=== PATIENT | male | born 1935 | race Caucasian/White ===

== ENCOUNTER 2017-06-26 16:58 | Observation (INO) ==
[2017-06-26 17:36] LABS: INR 1.1; PT Patient Result 11.4 SECS; Partial Thromboplastin Time 24.1 SECS (0-40)
[2017-06-26] MEDS ORDERED: LIDOCAINE 2%/EPI 20 ML VIAL ONE (17:52)
[2017-06-26] MEDS ORDERED: TISSUE ADHESIVE 1 EACH APPLICATOR TOP ONE (17:55)
[2017-06-26 18:22] LABS: Basophils % 0.1 % (0.0-0.8); Eosinophils % 0.1 % (0.00-10.9); Hematocrit 24.1 VOL% (42.0-52.0); Hemoglobin 7.9 GM/DL (14.0-18.0); Immature Granulocytes % 0.1 %; Immature Granulocytes Absolute 0.05 #; Lymphocytes # 30.3 10*3/uL (1.4-4.0); Lymphocytes % 85.5 % (21.2-54.2); Mean Corpuscular HGB Conc 32.8 GM/DL (32-36); Mean Corpuscular Hemoglobin 36 PG (27-34); Mean Corpuscular Volume 111.1 FL (87-102); Mean Platelet Volume 13.2 FL (9.6-12.0); Monocytes # 4.1 10*3/uL (0.11-0.8); Monocytes % 11.5 % (1.7-12.7); NRBC # 0.02 10*3/uL; Neutrophils % 2.7 % (38.7-73.9); Red Blood Count 2.17 MC/CUMM (3.8-5.5); Red Cell Distribution Width 17.3 % (9.3-17.3); White Blood Count 35.4 T/CUMM (4-12)
[2017-06-26 18:24] LABS: Platelet Count 20 T/CUMM (130-400)
[2017-06-26 18:29] LABS: Lymphocytes 89 % (20-55); Platelet Estimate Decreased; Segmented Neutrophils 3 % (50-85); Total Cells Counted 100
[2017-06-26 18:30] LABS: Anisocytosis 2+; Macrocytosis 1+; Microcytosis 1+; Smudge Cells Many
[2017-06-26] MEDS ORDERED: traMADol 50 MG TABLET PO ONE (19:10)
[2017-06-26] MEDS ORDERED: ACETAMINOPHEN 325 MG TABLET PO PRN ×2 (19:10→20:06)
[2017-06-26] MEDS ORDERED: ONDANSETRON 4 MG/2 ML VIAL IV PRN ×2 (19:10→20:06)
[2017-06-26] MEDS ORDERED: LEVOFLOXACIN 500 MG TABLET PO STA (19:10)
[2017-06-26] MEDS ORDERED: MYLANTA/LIDO VISC 2:1 300 ML BOTTLE SWISH/SWAL PRN (20:06)
[2017-06-26] MEDS ORDERED: MYLANTA/LIDO VISC 2:1 300 ML BOTTLE SWISH/SPIT PRN (20:06)
[2017-06-26] MEDS ORDERED: LOPERAMIDE 2 MG CAPSULE PO PRN ×2 (20:06)
[2017-06-26] MEDS ORDERED: diphenhydrAMINE CAP 25 MG CAPSULE PO PRN (20:06)
[2017-06-26] MEDS ORDERED: ALUMINUM/MAGNES/SIMETH MAX STR 30 ML UDCUP PO PRN (20:06)
[2017-06-26] MEDS ORDERED: TEMAZEPAM 7.5 MG CAPSULE PO PRN (20:06)
[2017-06-26] MEDS ORDERED: MAGNESIUM HYDROXIDE SUSP 30 ML UDCUP PO PRN (20:06)
[2017-06-26] MEDS ORDERED: BENZTROPINE 2 MG/2 ML AMP IV PRN (20:06)
[2017-06-26] MEDS ORDERED: chlorproMAZINE 25 MG TABLET PO PRN (20:06)
[2017-06-26] MEDS ORDERED: PROMETHAZINE INJ 25 MG in SODIUM CHLORIDE 0.9% 50 ML IV PRN (20:06)
[2017-06-26] MEDS ORDERED: guaiFENesin 200 MG/10 ML UDCUP PO PRN (20:06)
[2017-06-26] MEDS ORDERED: LACTULOSE 20 GM/30 ML UDCUP PO PRN (20:06)
[2017-06-26] MEDS ORDERED: chlorproMAZINE INJ 25 MG in SODIUM CHLORIDE 0.9% 100 ML IV PRN (20:06)
[2017-06-26] MEDS ORDERED: ALPRAZolam 0.25 MG TABLET PO PRN (20:06)
[2017-06-26] MEDS ORDERED: chlorproMAZINE INJ 50 MG in SODIUM CHLORIDE 0.9% 100 ML IV PRN (20:06)
[2017-06-26] MEDS ORDERED: traMADol 50 MG TABLET PO PRN (20:06)
[2017-06-26 20:34] LABS: Albumin 3.1 G/DL (3.4-5.0); Bilirubin,Total 0.7 MG/DL (0.2-1.0); Calcium 7.6 MG/DL (8.5-10.1); Osmolality,Calculated 277.1 MOS/KG (273-304); Potassium 3.8 MMOL/L (3.5-5.1); Total Protein 5.4 G/DL (6.4-8.3); Uric Acid 8.3 MG/DL (3.5-7.2)
[2017-06-27 07:41] LABS: Basophils # 0.1 10*3/uL (0.0-0.2); Basophils % 0.1 % (0.0-0.8); Eosinophils # 0.1 10*3/uL (0.0-0.87); Eosinophils % 0.2 % (0.00-10.9); Hematocrit 22.9 VOL% (42.0-52.0); Hemoglobin 7.5 GM/DL (14.0-18.0); Immature Granulocytes % 0.1 %; Immature Granulocytes Absolute 0.05 #; Lymphocytes # 40.8 10*3/uL (1.4-4.0); Lymphocytes % 80.4 % (21.2-54.2); Mean Corpuscular HGB Conc 32.8 GM/DL (32-36); Mean Corpuscular Hemoglobin 36 PG (27-34); Mean Corpuscular Volume 110.1 FL (87-102); Mean Platelet Volume 10.8 FL (9.6-12.0); Monocytes # 8.8 10*3/uL (0.11-0.8); Monocytes % 17.4 % (1.7-12.7); NRBC # 0.02 10*3/uL; Neutrophils # 0.9 10*3/uL (1.4-7.4); Neutrophils % 1.8 % (38.7-73.9); Red Blood Count 2.08 MC/CUMM (3.8-5.5); Red Cell Distribution Width 17.4 % (9.3-17.3)
[2017-06-27 07:47] LABS: White Blood Count 50.7 T/CUMM (4-12)
[2017-06-27 07:48] LABS: Platelet Count 23 T/CUMM (130-400)
[2017-06-27] MEDS ORDERED: SODIUM CHLORIDE 0.9% 1,000 ML IV PRN (08:09)
[2017-06-27] MEDS ORDERED: diphenhydrAMINE CAP 25 MG CAPSULE PO ONE (08:10)
[2017-06-27] MEDS ORDERED: ACETAMINOPHEN 500 MG TABLET PO ONE (08:10)
[2017-06-27 08:13] LABS: Eosinophils 1 % (0-10); Lymphocytes 91 % (20-55); Segmented Neutrophils 3 % (50-85); Total Cells Counted 100
[2017-06-27 08:14] LABS: Atypical Lymphocytes Few; Macrocytosis 1+; Smudge Cells Moderate
[2017-06-27 08:15] LABS: Ovalocytes Slight; Platelet Estimate Decreased; Tear Drop Cells Few
[2017-06-27] MEDS ORDERED: traMADol 50 MG TABLET PO PRN (08:19)
[2017-06-27 08:26] LABS: Apearance,Urine CLEAR (Clear); Bilirubin,Urine Negative (Negative); Blood, Urine Negative (Negative); Glucose,Urine (UA) Negative (Negative); Ketones,Urine Negative (Negative); Mucus,Urine Occasional /LPF (Occasional); Nitrite,Urine Negative (Negative); Protein,Urine Negative; RBC,Urine 2 /HPF (0-4); Squamous Epithelial Cell,Urine Occasional /HPF (0-10); Urine Color Yellow (Yellow); Urine Specific Gravity 1.016 (1.001-1.035); WBC,Urine <1 /HPF (0-6)
[2017-06-27] MEDS ORDERED: ACETAMINOPHEN 325 MG TABLET PO SCH (08:30)
[2017-06-27] MEDS ORDERED: ONDANSETRON 4 MG TABLET PO PRN (08:55)
[2017-06-27] MEDS ORDERED: MAG CARB PO SCH (09:00)
[2017-06-27] MEDS ORDERED: CALCIUM CARBONATE PO SCH (09:00)
[2017-06-27] MEDS ORDERED: SPIRONOLACTONE/HCTZ 25-25 MG TABLET PO SCH (09:00)
[2017-06-27] MEDS: MULTIVITAMIN (BEROCCA) TABLET PO SCH (09:41)
[2017-06-27] MEDS: MONTELUKAST 10 MG TABLET PO SCH (09:41)
[2017-06-27] MEDS: MULTIVITAMIN (CENTRUM) TABLET PO SCH (09:41)
[2017-06-27] MEDS: SIMVASTATIN 10 MG TABLET PO SCH (09:42)
[2017-06-27] MEDS: PANTOPRAZOLE 40 MG TABLET PO SCH (09:42)
[2017-06-27] MEDS: CALCIUM (CARBONATE) 500 MG TABLET PO SCH (09:42)
[2017-06-27] MEDS ORDERED: ONDANSETRON 4 MG TABLET PO SCH (12:00)
[2017-06-27] MEDS: SPIRONOLACTONE 25 MG TABLET PO SCH (13:53)
[2017-06-27] MEDS: hydroCHLOROthiazide 12.5 MG CAPSULE PO SCH (13:54)
[2017-06-27] MEDS: ACETAMINOPHEN 325 MG TABLET PO PRN (17:33)
[2017-06-28] MEDS: ACETAMINOPHEN 325 MG TABLET PO PRN (02:23)
[2017-06-28 07:07] LABS: Basophils # 0.1 10*3/uL (0.0-0.2); Basophils % 0.1 % (0.0-0.8); Eosinophils # 0.2 10*3/uL (0.0-0.87); Eosinophils % 0.5 % (0.00-10.9); Hematocrit 26.1 VOL% (42.0-52.0); Hemoglobin 8.9 GM/DL (14.0-18.0); Immature Granulocytes % 0.1 %; Immature Granulocytes Absolute 0.03 #; Lymphocytes # 31.3 10*3/uL (1.4-4.0); Lymphocytes % 86.9 % (21.2-54.2); Mean Corpuscular HGB Conc 34.1 GM/DL (32-36); Mean Corpuscular Hemoglobin 35 PG (27-34); Monocytes # 3.8 10*3/uL (0.11-0.8); Monocytes % 10.5 % (1.7-12.7); Neutrophils # 0.7 10*3/uL (1.4-7.4); Neutrophils % 1.9 % (38.7-73.9); Red Blood Count 2.56 MC/CUMM (3.8-5.5); Red Cell Distribution Width 19.8 % (9.3-17.3)
[2017-06-28 07:09] LABS: Platelet Count 34 T/CUMM (130-400)
[2017-06-28 07:39] LABS: Bilirubin,Total 0.9 MG/DL (0.2-1.0); Calcium 8.2 MG/DL (8.5-10.1); Osmolality,Calculated 274.8 MOS/KG (273-304); Potassium 3.3 MMOL/L (3.5-5.1)
[2017-06-28 08:04] LABS: Atypical Lymphocytes Few; Eosinophils 1 % (0-10); Lymphocytes 92 % (20-55); Segmented Neutrophils 6 % (50-85); Total Cells Counted 100
[2017-06-28 08:05] LABS: Hypochromasia 1+; Macrocytosis 1+; Ovalocytes Slight; Platelet Estimate Decreased; Smudge Cells Moderate; Tear Drop Cells Few
[2017-06-28] MEDS: SPIRONOLACTONE 25 MG TABLET PO SCH (09:18)
[2017-06-28] MEDS: SIMVASTATIN 10 MG TABLET PO SCH (09:18)
[2017-06-28] MEDS: MULTIVITAMIN (BEROCCA) TABLET PO SCH (09:18)
[2017-06-28] MEDS: PANTOPRAZOLE 40 MG TABLET PO SCH (09:18)
[2017-06-28] MEDS: MULTIVITAMIN (CENTRUM) TABLET PO SCH (09:18)
[2017-06-28] MEDS: MONTELUKAST 10 MG TABLET PO SCH (09:18)
[2017-06-28] MEDS: CALCIUM (CARBONATE) 500 MG TABLET PO SCH (09:18)
[2017-06-28] MEDS: hydroCHLOROthiazide 12.5 MG CAPSULE PO SCH (09:26)
[2017-06-28 10:45] VITALS: BP 113/59
== END 2017-06-28 10:45 | disposition home or self-care (01) ==
LOC: N.EDINP 16:58 → N.ED 16:58 → N.4E 18:57
PROVIDERS: ADMIT Surgery; ATTEND Specialist

== ENCOUNTER 2017-08-09 18:48 | Inpatient (IN) ==
[2017-08-09] MEDS ORDERED: VANCOMYCIN INJ 1,000 MG in SODIUM CHLORIDE 0.9% 250 ML IV STA (19:28)
[2017-08-09] MEDS ORDERED: SODIUM CHLORIDE 0.9% 1,000 ML IV STA ×2 (19:28→21:40)
[2017-08-09] MEDS ORDERED: CEFEPIME 2,000 MG in SODIUM CHLORIDE 0.9% 100 ML IV STA (19:30)
[2017-08-09] MEDS ORDERED: ACETAMINOPHEN 500 MG TABLET PO STA (20:08)
[2017-08-09] MEDS ORDERED: CEFEPIME 2,000 MG VIAL ONE (20:18)
[2017-08-09] MEDS ORDERED: VANCOMYCIN 1,000 MG VIAL ONE (20:18)
[2017-08-09] MEDS ORDERED: ACETAMINOPHEN 500 MG TABLET ONE (20:18)
[2017-08-09 20:49] LABS: Basophils # 0.1 10*3/uL (0.0-0.2); Basophils % 0.1 % (0.0-0.8); Eosinophils # 0.1 10*3/uL (0.0-0.87); Eosinophils % 0.1 % (0.00-10.9); Hematocrit 25.7 VOL% (42.0-52.0); Hemoglobin 8.4 GM/DL (14.0-18.0); Immature Granulocytes % 0.1 %; Immature Granulocytes Absolute 0.09 #; Lymphocytes # 66.8 10*3/uL (1.4-4.0); Lymphocytes % 92.8 % (21.2-54.2); Mean Corpuscular HGB Conc 32.7 GM/DL (32-36); Mean Corpuscular Hemoglobin 35 PG (27-34); Mean Corpuscular Volume 105.8 FL (87-102); Mean Platelet Volume 11.7 FL (9.6-12.0); Monocytes # 4.3 10*3/uL (0.11-0.8); NRBC # 0.03 10*3/uL; Neutrophils # 0.7 10*3/uL (1.4-7.4); Neutrophils % 0.9 % (38.7-73.9); Red Blood Count 2.43 MC/CUMM (3.8-5.5)
[2017-08-09 20:53] LABS: Platelet Count 27 T/CUMM (130-400)
[2017-08-09 21:13] LABS: Lactic Acid 2.2 MMOL/L (0.4-2.0)
[2017-08-09 21:25] LABS: Lymphocytes 96 % (20-55); Segmented Neutrophils 4 % (50-85); Total Cells Counted 100
[2017-08-09 21:27] LABS: Anisocytosis 1+
[2017-08-09 21:28] LABS: Hypochromasia 1+; Ovalocytes 2+; Platelet Estimate Decreased; Tear Drop Cells 1+
[2017-08-09 21:29] LABS: Alanine Aminotransferase 15 U/L (16-61); Albumin 3.1 G/DL (3.4-5.0); Alkaline Phosphatase 95 U/L (45-117); Aspartate Amino Transferase 21 U/L (0-37); Blood Urea Nitrogen 25 MG/DL (7-18); Calcium 7.5 MG/DL (8.5-10.1); Glucose 127 MG/DL (74-106); Osmolality,Calculated 273.2 MOS/KG (273-304); Smudge Cells 2+; Sodium 134 MMOL/L (136-145); Total Protein 5.3 G/DL (6.4-8.3)
[2017-08-09 21:45] LABS: Apearance,Urine CLEAR (Clear); Bilirubin,Urine Negative (Negative); Blood, Urine Negative (Negative); Glucose,Urine (UA) Negative (Negative); Ketones,Urine Negative (Negative); Nitrite,Urine Negative (Negative); Protein,Urine Negative; RBC,Urine 2 /HPF (0-4); Squamous Epithelial Cell,Urine Occasional /HPF (0-10); Urine Color Yellow (Yellow); Urine Specific Gravity 1.014 (1.001-1.035); WBC,Urine <1 /HPF (0-6)
[2017-08-09] MEDS ORDERED: NOREPINEPHRINE 4 MG/4 ML VIAL IV ONE (22:29)
[2017-08-09] MEDS: NOREPINEPHRINE 8 MG in SODIUM CHLORIDE 0.9% 242 ML IV SCH (22:58)
[2017-08-09] MEDS ORDERED: ALBUTEROL 2.5 MG/3 ML NEB RESP TX PRN (23:01)
[2017-08-09] MEDS ORDERED: ONDANSETRON 4 MG/2 ML VIAL IV STA (23:01)
[2017-08-09] MEDS ORDERED: ONDANSETRON 4 MG/2 ML VIAL IV PRN (23:06)
[2017-08-09] MEDS ORDERED: ONDANSETRON 4 MG/2 ML VIAL ONE (23:06)
[2017-08-09] MEDS ORDERED: SODIUM CHLORIDE 0.9% 1,000 ML IV SCH (23:30)
[2017-08-09] MEDS: BUDESONIDE 0.5 MG/2 ML NEB RESP TX SCH (23:48)
[2017-08-09] MEDS: ALBUTEROL/IPRATROPIUM 3 ML NEB RESP TX SCH (23:48)
[2017-08-10 01:08] LABS: INR 1.1; PT Patient Result 11.8 SECS
[2017-08-10 01:18] LABS: Calcium 6.9 MG/DL (8.5-10.1); Osmolality,Calculated 275.1 MOS/KG (273-304); Potassium 3.6 MMOL/L (3.5-5.1)
[2017-08-10] MEDS: NOREPINEPHRINE 8 MG in SODIUM CHLORIDE 0.9% 242 ML IV SCH (02:00)
[2017-08-10] MEDS ORDERED: guaiFENesin 200 MG/10 ML UDCUP PO PRN (02:02)
[2017-08-10 02:46] LABS: Basophils % 0.1 % (0.0-0.8); Hematocrit 22.1 VOL% (42.0-52.0); Immature Granulocytes % 0.4 %; Lymphocytes # 68.4 10*3/uL (1.4-4.0); Lymphocytes % 94.4 % (21.2-54.2); Mean Corpuscular HGB Conc 31.7 GM/DL (32-36); Mean Corpuscular Hemoglobin 34 PG (27-34); Mean Corpuscular Volume 108.3 FL (87-102); Mean Platelet Volume 11.8 FL (9.6-12.0); Monocytes # 2.9 10*3/uL (0.11-0.8); Monocytes % 3.9 % (1.7-12.7); NRBC # 0.02 10*3/uL; Neutrophils # 0.8 10*3/uL (1.4-7.4); Neutrophils % 1.2 % (38.7-73.9); Red Blood Count 2.04 MC/CUMM (3.8-5.5); Red Cell Distribution Width 20.1 % (9.3-17.3)
[2017-08-10 02:54] LABS: White Blood Count 72.5 T/CUMM (4-12)
[2017-08-10 02:55] LABS: Platelet Count 27 T/CUMM (130-400)
[2017-08-10] MEDS ORDERED: SODIUM CHLORIDE 0.9% 1,000 ML IV PRN ×3 (03:40→13:36)
[2017-08-10 04:23] LABS: Lymphocytes 95 % (20-55); Platelet Estimate Decreased; Segmented Neutrophils 4 % (50-85); Smudge Cells Moderate; Total Cells Counted 100
[2017-08-10 04:24] LABS: Atypical Lymphocytes Few
[2017-08-10] MEDS: CEFEPIME 1,000 MG in SYRINGE 1 EACH IV SCH ×3 (05:55→21:48)
[2017-08-10] MEDS: ALBUTEROL/IPRATROPIUM 3 ML NEB RESP TX SCH ×3 (07:02→19:51)
[2017-08-10] MEDS: BUDESONIDE 0.5 MG/2 ML NEB RESP TX SCH ×2 (07:02→19:51)
[2017-08-10] MEDS ORDERED: FUROSEMIDE 40 MG/4 ML VIAL IV ONE (07:56)
[2017-08-10] MEDS ORDERED: SODIUM CHLORIDE 0.9% 1,000 ML IV SCH (08:30)
[2017-08-10] MEDS: MONTELUKAST 10 MG TABLET PO SCH (08:41)
[2017-08-10] MEDS: CALCIUM (CARBONATE) 500 MG TABLET PO SCH (08:41)
[2017-08-10] MEDS: PANTOPRAZOLE 40 MG TABLET PO SCH (08:41)
[2017-08-10] MEDS: VANCOMYCIN INJ 1,000 MG in SODIUM CHLORIDE 0.9% 250 ML IV SCH ×2 (08:42→21:50)
[2017-08-10] MEDS ORDERED: MAG CARB PO SCH (09:00)
[2017-08-10] MEDS ORDERED: CALCIUM CARBONATE PO SCH (09:00)
[2017-08-10] MEDS: FILGRASTIM-SNDZ 300 MCG/0.5 ML SYRINGE SUBCUT SCH (12:20)
[2017-08-10] MEDS: DEXT 5% NACL 0.45% KCL 20 MEQ 20 MEQ/1,000 ML BAG IV SCH (12:21)
[2017-08-10 12:45] LABS: Hematocrit 24.2 VOL% (42.0-52.0); Hemoglobin 7.6 GM/DL (14.0-18.0)
[2017-08-10] MEDS: SIMVASTATIN 10 MG TABLET PO SCH (21:48)
[2017-08-11] MEDS: ALBUTEROL/IPRATROPIUM 3 ML NEB RESP TX SCH ×4 (02:25→19:58)
[2017-08-11 05:53] LABS: Hematocrit 29.7 VOL% (42.0-52.0); Hemoglobin 9.4 GM/DL (14.0-18.0); Immature Granulocytes % 0.4 %; Immature Granulocytes Absolute 0.34 #; Lymphocytes # 88.8 10*3/uL (1.4-4.0); Lymphocytes % 93.9 % (21.2-54.2); Mean Corpuscular HGB Conc 31.6 GM/DL (32-36); Mean Corpuscular Hemoglobin 32 PG (27-34); Mean Corpuscular Volume 102.1 FL (87-102); Monocytes # 3.2 10*3/uL (0.11-0.8); Monocytes % 3.4 % (1.7-12.7); NRBC # 0.05 10*3/uL; Neutrophils # 2.2 10*3/uL (1.4-7.4); Neutrophils % 2.3 % (38.7-73.9); Red Blood Count 2.91 MC/CUMM (3.8-5.5)
[2017-08-11 05:57] LABS: White Blood Count 94.6 T/CUMM (4-12)
[2017-08-11 05:58] LABS: Platelet Count 27 T/CUMM (130-400)
[2017-08-11 06:01] LABS: Hematocrit 29.7 VOL% (42.0-52.0); Hemoglobin 9.4 GM/DL (14.0-18.0)
[2017-08-11 06:17] LABS: Atypical Lymphocytes Few; Lymphocytes 97 % (20-55); Ovalocytes Slight; Platelet Estimate Decreased; Segmented Neutrophils 3 % (50-85); Smudge Cells Moderate; Total Cells Counted 100
[2017-08-11 06:18] LABS: Macrocytosis Slight
[2017-08-11 06:21] LABS: Alanine Aminotransferase < 9 U/L (16-61); Albumin 2.5 G/DL (3.4-5.0); Alkaline Phosphatase 80 U/L (45-117); Aspartate Amino Transferase 37 U/L (0-37); Blood Urea Nitrogen 17 MG/DL (7-18); Calcium 7.4 MG/DL (8.5-10.1); Glucose 131 MG/DL (74-106); Osmolality,Calculated 269.4 MOS/KG (273-304); Potassium 3.4 MMOL/L (3.5-5.1); Sodium 133 MMOL/L (136-145); Total Protein 4.5 G/DL (6.4-8.3)
[2017-08-11] MEDS: NOREPINEPHRINE 8 MG in SODIUM CHLORIDE 0.9% 242 ML IV SCH (06:40)
[2017-08-11] MEDS: DEXT 5% NACL 0.45% KCL 20 MEQ 20 MEQ/1,000 ML BAG IV SCH (06:41)
[2017-08-11] MEDS: CEFEPIME 1,000 MG in SYRINGE 1 EACH IV SCH ×3 (06:41→20:33)
[2017-08-11] MEDS: BUDESONIDE 0.5 MG/2 ML NEB RESP TX SCH ×2 (07:05→19:58)
[2017-08-11] MEDS: CALCIUM (CARBONATE) 500 MG TABLET PO SCH (09:20)
[2017-08-11] MEDS: VANCOMYCIN INJ 1,000 MG in SODIUM CHLORIDE 0.9% 250 ML IV SCH ×2 (09:20→20:34)
[2017-08-11] MEDS: PANTOPRAZOLE 40 MG TABLET PO SCH (09:20)
[2017-08-11] MEDS: MONTELUKAST 10 MG TABLET PO SCH (09:21)
[2017-08-11] MEDS ORDERED: FUROSEMIDE 40 MG/4 ML VIAL IV ONE (10:35)
[2017-08-11] MEDS ORDERED: traMADol 50 MG TABLET PO PRN (10:38)
[2017-08-11] MEDS ORDERED: BENZTROPINE 2 MG/2 ML AMP IV PRN (10:38)
[2017-08-11] MEDS ORDERED: ALUMINUM/MAGNES/SIMETH MAX STR 30 ML UDCUP PO PRN (10:38)
[2017-08-11] MEDS ORDERED: LACTULOSE 20 GM/30 ML UDCUP PO PRN (10:38)
[2017-08-11] MEDS ORDERED: ONDANSETRON 4 MG/2 ML VIAL IV PRN (10:38)
[2017-08-11] MEDS ORDERED: TEMAZEPAM 7.5 MG CAPSULE PO PRN (10:38)
[2017-08-11] MEDS ORDERED: MAGNESIUM HYDROXIDE SUSP 30 ML UDCUP PO PRN (10:38)
[2017-08-11] MEDS ORDERED: MYLANTA/LIDO VISC 2:1 300 ML BOTTLE SWISH/SPIT PRN (10:38)
[2017-08-11] MEDS ORDERED: ALPRAZolam 0.25 MG TABLET PO PRN (10:38)
[2017-08-11] MEDS ORDERED: diphenhydrAMINE CAP 25 MG CAPSULE PO PRN (10:38)
[2017-08-11] MEDS ORDERED: LOPERAMIDE 2 MG CAPSULE PO PRN ×2 (10:38)
[2017-08-11] MEDS ORDERED: MYLANTA/LIDO VISC 2:1 300 ML BOTTLE SWISH/SWAL PRN (10:38)
[2017-08-11] MEDS ORDERED: PROMETHAZINE INJ 25 MG in SODIUM CHLORIDE 0.9% 50 ML IV PRN (10:38)
[2017-08-11] MEDS: ACETAMINOPHEN 325 MG TABLET PO PRN (10:59)
[2017-08-11] MEDS: FILGRASTIM-SNDZ 300 MCG/0.5 ML SYRINGE SUBCUT SCH (12:00)
[2017-08-11] MEDS: FLUCONAZOLE INJ 100 MG in IV BAG 1 EACH IV SCH (13:00)
[2017-08-11] MEDS: DEXT 5% NACL 0.45% KCL 40 MEQ 40 MEQ/1,000 ML BAG IV SCH (13:35)
[2017-08-11] MEDS: LEVOFLOXACIN INJ 500 MG in PREMIX 1 EACH IV SCH (13:47)
[2017-08-11] MEDS ORDERED: metFORMIN 500 MG TABLET PO SCH (17:00)
[2017-08-11] MEDS: SIMVASTATIN 10 MG TABLET PO SCH (20:33)
[2017-08-12] MEDS: ACETAMINOPHEN 325 MG TABLET PO PRN (00:06)
[2017-08-12] MEDS: ALBUTEROL/IPRATROPIUM 3 ML NEB RESP TX SCH ×5 (01:14→19:09)
[2017-08-12] MEDS: CEFEPIME 1,000 MG in SYRINGE 1 EACH IV SCH ×3 (04:31→21:18)
[2017-08-12 05:52] LABS: Basophils # 0.1 10*3/uL (0.0-0.2); Basophils % 0.2 % (0.0-0.8); Eosinophils # 0.1 10*3/uL (0.0-0.87); Eosinophils % 0.2 % (0.00-10.9); Hematocrit 26.3 VOL% (42.0-52.0); Immature Granulocytes % 0.9 %; Immature Granulocytes Absolute 0.45 #; Lymphocytes # 48.6 10*3/uL (1.4-4.0); Lymphocytes % 93.1 % (21.2-54.2); Mean Corpuscular HGB Conc 34.2 GM/DL (32-36); Mean Corpuscular Hemoglobin 34 PG (27-34); Mean Corpuscular Volume 97.8 FL (87-102); Monocytes # 1.6 10*3/uL (0.11-0.8); Monocytes % 3.1 % (1.7-12.7); NRBC # 0.02 10*3/uL; Neutrophils # 1.4 10*3/uL (1.4-7.4); Neutrophils % 2.5 % (38.7-73.9); Red Blood Count 2.69 MC/CUMM (3.8-5.5); Red Cell Distribution Width 21.7 % (9.3-17.3)
[2017-08-12 05:56] LABS: White Blood Count 52.2 T/CUMM (4-12)
[2017-08-12 05:57] LABS: Platelet Count 28 T/CUMM (130-400)
[2017-08-12 06:25] LABS: Alanine Aminotransferase < 9 U/L (16-61); Albumin 2.3 G/DL (3.4-5.0); Alkaline Phosphatase 81 U/L (45-117); Aspartate Amino Transferase 22 U/L (0-37); Blood Urea Nitrogen 16 MG/DL (7-18); Calcium 7.5 MG/DL (8.5-10.1); Glucose 112 MG/DL (74-106); Osmolality,Calculated 267.4 MOS/KG (273-304); Potassium 3.4 MMOL/L (3.5-5.1); Sodium 133 MMOL/L (136-145); Total Protein 4.3 G/DL (6.4-8.3)
[2017-08-12 06:48] LABS: Anisocytosis 1+; Eosinophils 1 % (0-10); Hypochromasia 1+; Lymphocytes 95 % (20-55); Segmented Neutrophils 3 % (50-85); Smudge Cells Moderate; Total Cells Counted 100
[2017-08-12 06:49] LABS: Basophilic Stippling Slight; Ovalocytes Slight; Platelet Estimate Decreased; Polychromasia Slight
[2017-08-12 06:50] LABS: Macrocytosis Slight
[2017-08-12] MEDS: NOREPINEPHRINE 8 MG in SODIUM CHLORIDE 0.9% 242 ML IV SCH (07:00)
[2017-08-12] MEDS: BUDESONIDE 0.5 MG/2 ML NEB RESP TX SCH ×2 (07:35→19:09)
[2017-08-12] MEDS ORDERED: POTASSIUM CHLORIDE 20 MEQ PACK PO ONE (08:46)
[2017-08-12] MEDS ORDERED: MAGNESIUM OXIDE 400 MG TABLET PO ONE (08:46)
[2017-08-12] MEDS: VANCOMYCIN INJ 1,000 MG in SODIUM CHLORIDE 0.9% 250 ML IV SCH (09:00)
[2017-08-12] MEDS: MONTELUKAST 10 MG TABLET PO SCH (09:00)
[2017-08-12] MEDS: FILGRASTIM-SNDZ 300 MCG/0.5 ML SYRINGE SUBCUT SCH (09:00)
[2017-08-12] MEDS: PANTOPRAZOLE 40 MG TABLET PO SCH (09:00)
[2017-08-12] MEDS: CALCIUM (CARBONATE) 500 MG TABLET PO SCH (09:00)
[2017-08-12] MEDS ORDERED: MAGNESIUM SULF RIDER 2 GM in PREMIX 1 EACH IV PRN (10:59)
[2017-08-12] MEDS ORDERED: MAGNESIUM SULF RIDER 4 GM in PREMIX 1 EACH IV PRN (10:59)
[2017-08-12] MEDS ORDERED: POTASSIUM CHLORIDE 20 MEQ TABLET PO PRN (10:59)
[2017-08-12] MEDS: FLUCONAZOLE INJ 100 MG in IV BAG 1 EACH IV SCH (11:10)
[2017-08-12] MEDS: LEVOFLOXACIN INJ 500 MG in PREMIX 1 EACH IV SCH (12:10)
[2017-08-12] MEDS: VANCOMYCIN INJ 1,250 MG in SODIUM CHLORIDE 0.9% 250 ML IV SCH ×2 (21:21→21:29)
[2017-08-12] MEDS: DEXT 5% NACL 0.45% KCL 40 MEQ 40 MEQ/1,000 ML BAG IV SCH (21:31)
[2017-08-13] MEDS: ALBUTEROL/IPRATROPIUM 3 ML NEB RESP TX SCH ×7 (00:20→23:00)
[2017-08-13] MEDS: ACETAMINOPHEN 325 MG TABLET PO PRN ×2 (04:42→18:01)
[2017-08-13 05:33] LABS: Basophils # 0.1 10*3/uL (0.0-0.2); Basophils % 0.2 % (0.0-0.8); Eosinophils # 0.1 10*3/uL (0.0-0.87); Eosinophils % 0.3 % (0.00-10.9); Hematocrit 25.9 VOL% (42.0-52.0); Hemoglobin 8.8 GM/DL (14.0-18.0); Immature Granulocytes % 0.2 %; Immature Granulocytes Absolute 0.09 #; Lymphocytes % 92.7 % (21.2-54.2); Mean Corpuscular Hemoglobin 34 PG (27-34); Mean Corpuscular Volume 99.6 FL (87-102); Mean Platelet Volume 11.7 FL (9.6-12.0); Monocytes # 1.2 10*3/uL (0.11-0.8); Monocytes % 3.2 % (1.7-12.7); Neutrophils # 1.4 10*3/uL (1.4-7.4); Neutrophils % 3.4 % (38.7-73.9); Red Cell Distribution Width 20.7 % (9.3-17.3); White Blood Count 38.9 T/CUMM (4-12)
[2017-08-13 05:53] LABS: Platelet Count 21 T/CUMM (130-400)
[2017-08-13] MEDS: CEFEPIME 1,000 MG in SYRINGE 1 EACH IV SCH (05:58)
[2017-08-13 06:00] LABS: Band Neutrophils 1 % (0-10); Lymphocytes 81 % (20-55); Platelet Estimate Decreased; Segmented Neutrophils 15 % (50-85); Smudge Cells Many; Total Cells Counted 100
[2017-08-13 06:01] LABS: Anisocytosis 1+; Atypical Lymphocytes Few; Macrocytosis 3+
[2017-08-13 06:03] LABS: Calcium 7.5 MG/DL (8.5-10.1); Osmolality,Calculated 259.8 MOS/KG (273-304)
[2017-08-13 06:13] LABS: Albumin 2.2 G/DL (3.4-5.0); Bilirubin,Total 1.4 MG/DL (0.2-1.0); Calcium 7.7 MG/DL (8.5-10.1); Osmolality,Calculated 261.7 MOS/KG (273-304); Total Protein 4.3 G/DL (6.4-8.3)
[2017-08-13] MEDS: ONDANSETRON 4 MG/2 ML VIAL IV PRN (06:28)
[2017-08-13] MEDS ORDERED: SODIUM CHLORIDE 0.9% 1,000 ML IV PRN (06:34)
[2017-08-13] MEDS: NOREPINEPHRINE 8 MG in SODIUM CHLORIDE 0.9% 242 ML IV SCH (07:38)
[2017-08-13] MEDS: BUDESONIDE 0.5 MG/2 ML NEB RESP TX SCH ×2 (07:40→19:08)
[2017-08-13] MEDS: MONTELUKAST 10 MG TABLET PO SCH (09:21)
[2017-08-13] MEDS: PANTOPRAZOLE 40 MG TABLET PO SCH (09:21)
[2017-08-13] MEDS: CALCIUM (CARBONATE) 500 MG TABLET PO SCH (09:21)
[2017-08-13] MEDS: FILGRASTIM-SNDZ 300 MCG/0.5 ML SYRINGE SUBCUT SCH (09:21)
[2017-08-13] MEDS: VANCOMYCIN INJ 1,250 MG in SODIUM CHLORIDE 0.9% 250 ML IV SCH (11:22)
[2017-08-13] MEDS: FLUCONAZOLE INJ 100 MG in IV BAG 1 EACH IV SCH (11:30)
[2017-08-13] MEDS: LEVOFLOXACIN INJ 500 MG in PREMIX 1 EACH IV SCH (11:32)
[2017-08-13 15:07] LABS: Procalcitonin, S 2.5 ng/mL (<=0.15)
[2017-08-14] MEDS: ACETAMINOPHEN 325 MG TABLET PO PRN ×3 (00:13→19:56)
[2017-08-14] MEDS: ALBUTEROL/IPRATROPIUM 3 ML NEB RESP TX SCH ×5 (02:49→19:20)
[2017-08-14] MEDS: ONDANSETRON 4 MG/2 ML VIAL IV PRN (02:53)
[2017-08-14 05:53] LABS: Basophils # 0.1 10*3/uL (0.0-0.2); Basophils % 0.1 % (0.0-0.8); Eosinophils # 0.2 10*3/uL (0.0-0.87); Eosinophils % 0.5 % (0.00-10.9); Hematocrit 24.2 VOL% (42.0-52.0); Hemoglobin 8.1 GM/DL (14.0-18.0); Immature Granulocytes % 0.2 %; Immature Granulocytes Absolute 0.09 #; Lymphocytes % 92.9 % (21.2-54.2); Mean Corpuscular HGB Conc 33.5 GM/DL (32-36); Mean Corpuscular Hemoglobin 33 PG (27-34); Mean Corpuscular Volume 99.6 FL (87-102); Monocytes # 0.9 10*3/uL (0.11-0.8); Monocytes % 2.5 % (1.7-12.7); Neutrophils # 1.3 10*3/uL (1.4-7.4); Neutrophils % 3.8 % (38.7-73.9); Red Blood Count 2.43 MC/CUMM (3.8-5.5); Red Cell Distribution Width 19.9 % (9.3-17.3); White Blood Count 36.6 T/CUMM (4-12)
[2017-08-14 06:00] LABS: Calcium 7.6 MG/DL (8.5-10.1); Osmolality,Calculated 257.1 MOS/KG (273-304); Potassium 3.9 MMOL/L (3.5-5.1)
[2017-08-14 06:02] LABS: Platelet Count 23 T/CUMM (130-400)
[2017-08-14 06:04] LABS: Alanine Aminotransferase < 6 U/L (16-61); Albumin 2.3 G/DL (3.4-5.0); Alkaline Phosphatase 79 U/L (45-117); Aspartate Amino Transferase 18 U/L (0-37); Blood Urea Nitrogen 14 MG/DL (7-18); Calcium 7.6 MG/DL (8.5-10.1); Glucose 102 MG/DL (74-106); Osmolality,Calculated 258.9 MOS/KG (273-304); Potassium 3.9 MMOL/L (3.5-5.1); Sodium 129 MMOL/L (136-145); Total Protein 4.4 G/DL (6.4-8.3)
[2017-08-14 06:20] LABS: Eosinophils 4 % (0-10); Lymphocytes 72 % (20-55); Segmented Neutrophils 23 % (50-85); Total Cells Counted 100
[2017-08-14 06:21] LABS: Atypical Lymphocytes Few; Hypochromasia 1+; Ovalocytes Slight; Tear Drop Cells Slight
[2017-08-14 06:22] LABS: Anisocytosis 1+; Macrocytosis 1+; Platelet Estimate Decreased; Smudge Cells Many
[2017-08-14] MEDS: BUDESONIDE 0.5 MG/2 ML NEB RESP TX SCH ×2 (07:00→19:20)
[2017-08-14] MEDS: CALCIUM (CARBONATE) 500 MG TABLET PO SCH (09:40)
[2017-08-14] MEDS: MONTELUKAST 10 MG TABLET PO SCH (09:40)
[2017-08-14] MEDS: FILGRASTIM-SNDZ 300 MCG/0.5 ML SYRINGE SUBCUT SCH (09:40)
[2017-08-14] MEDS: PANTOPRAZOLE 40 MG TABLET PO SCH (09:40)
[2017-08-14] MEDS: FLUCONAZOLE INJ 100 MG in IV BAG 1 EACH IV SCH (12:59)
[2017-08-14] MEDS: LEVOFLOXACIN INJ 500 MG in PREMIX 1 EACH IV SCH (14:02)
[2017-08-14] MEDS: TRIAMCINOLONE 0.1% CREAM 15 GM TUBE TOP SCH ×2 (16:03→23:26)
[2017-08-15] MEDS: ALBUTEROL/IPRATROPIUM 3 ML NEB RESP TX SCH ×6 (01:24→19:05)
[2017-08-15] MEDS: ACETAMINOPHEN 325 MG TABLET PO PRN ×2 (02:51→15:04)
[2017-08-15 06:42] LABS: Eosinophils # 0.2 10*3/uL (0.0-0.87); Eosinophils % 0.5 % (0.00-10.9); Hematocrit 27.3 VOL% (42.0-52.0); Hemoglobin 8.7 GM/DL (14.0-18.0); Immature Granulocytes % 0.4 %; Immature Granulocytes Absolute 0.19 #; Lymphocytes # 43.7 10*3/uL (1.4-4.0); Lymphocytes % 90.4 % (21.2-54.2); Mean Corpuscular HGB Conc 31.9 GM/DL (32-36); Mean Corpuscular Hemoglobin 33 PG (27-34); Mean Corpuscular Volume 104.2 FL (87-102); Monocytes # 1.7 10*3/uL (0.11-0.8); Monocytes % 3.5 % (1.7-12.7); Neutrophils # 2.5 10*3/uL (1.4-7.4); Neutrophils % 5.2 % (38.7-73.9); Red Blood Count 2.62 MC/CUMM (3.8-5.5)
[2017-08-15 06:59] LABS: Platelet Count 24 T/CUMM (130-400); White Blood Count 48.3 T/CUMM (4-12)
[2017-08-15] MEDS: BUDESONIDE 0.5 MG/2 ML NEB RESP TX SCH ×2 (07:01→19:05)
[2017-08-15 07:13] LABS: Atypical Lymphocytes Few; Band Neutrophils 1 % (0-10); Eosinophils 1 % (0-10); Hypochromasia 1+; Lymphocytes 90 % (20-55); Macrocytosis 1+; Segmented Neutrophils 7 % (50-85); Smudge Cells Many; Total Cells Counted 100
[2017-08-15 07:14] LABS: Anisocytosis Slight; Ovalocytes Slight; Platelet Estimate Decreased; Poikilocytosis 1+
[2017-08-15 07:20] LABS: Alanine Aminotransferase < 9 U/L (16-61); Albumin 2.6 G/DL (3.4-5.0); Alkaline Phosphatase 93 U/L (45-117); Aspartate Amino Transferase 21 U/L (0-37); Blood Urea Nitrogen 13 MG/DL (7-18); Calcium 8.2 MG/DL (8.5-10.1); Glucose 117 MG/DL (74-106); Osmolality,Calculated 264.5 MOS/KG (273-304); Potassium 4.1 MMOL/L (3.5-5.1); Sodium 132 MMOL/L (136-145)
[2017-08-15] MEDS: CALCIUM (CARBONATE) 500 MG TABLET PO SCH (08:26)
[2017-08-15] MEDS: PANTOPRAZOLE 40 MG TABLET PO SCH (08:26)
[2017-08-15] MEDS: MONTELUKAST 10 MG TABLET PO SCH (08:26)
[2017-08-15] MEDS: TRIAMCINOLONE 0.1% CREAM 15 GM TUBE TOP SCH ×3 (08:34→22:19)
[2017-08-15] MEDS: LEVOFLOXACIN INJ 500 MG in PREMIX 1 EACH IV SCH (13:10)
[2017-08-15] MEDS: FLUCONAZOLE INJ 100 MG in IV BAG 1 EACH IV SCH (13:10)
[2017-08-15] MEDS: LEVOFLOXACIN 500 MG TABLET PO SCH (14:25)
[2017-08-15] MEDS: FLUCONAZOLE 100 MG TABLET PO SCH (14:25)
[2017-08-16] MEDS: ALBUTEROL/IPRATROPIUM 3 ML NEB RESP TX SCH ×4 (00:56→11:30)
[2017-08-16 05:51] LABS: Basophils # 0.1 10*3/uL (0.0-0.2); Basophils % 0.2 % (0.0-0.8); Eosinophils # 0.2 10*3/uL (0.0-0.87); Eosinophils % 0.5 % (0.00-10.9); Hematocrit 23.5 VOL% (42.0-52.0); Hemoglobin 7.8 GM/DL (14.0-18.0); Immature Granulocytes % 0.5 %; Immature Granulocytes Absolute 0.15 #; Lymphocytes # 25.5 10*3/uL (1.4-4.0); Mean Corpuscular HGB Conc 33.2 GM/DL (32-36); Mean Corpuscular Hemoglobin 34 PG (27-34); Mean Corpuscular Volume 101.3 FL (87-102); Mean Platelet Volume 12.5 FL (9.6-12.0); Monocytes # 0.8 10*3/uL (0.11-0.8); Monocytes % 2.9 % (1.7-12.7); Neutrophils % 6.9 % (38.7-73.9); Red Blood Count 2.32 MC/CUMM (3.8-5.5); Red Cell Distribution Width 19.7 % (9.3-17.3); White Blood Count 28.6 T/CUMM (4-12)
[2017-08-16 06:10] LABS: Platelet Count 23 T/CUMM (130-400)
[2017-08-16 06:13] LABS: Atypical Lymphocytes Few; Eosinophils 1 % (0-10); Hypochromasia 1+; Lymphocytes 76 % (20-55); Ovalocytes Slight; Platelet Estimate Decreased; Segmented Neutrophils 22 % (50-85); Smudge Cells Moderate; Total Cells Counted 100
[2017-08-16 06:14] LABS: Macrocytosis Slight
[2017-08-16 06:45] LABS: Alanine Aminotransferase < 9 U/L (16-61); Albumin 2.4 G/DL (3.4-5.0); Alkaline Phosphatase 77 U/L (45-117); Aspartate Amino Transferase 16 U/L (0-37); Blood Urea Nitrogen 14 MG/DL (7-18); Glucose 103 MG/DL (74-106); Osmolality,Calculated 266.4 MOS/KG (273-304); Potassium 4.1 MMOL/L (3.5-5.1); Sodium 133 MMOL/L (136-145); Total Protein 4.5 G/DL (6.4-8.3)
[2017-08-16] MEDS: BUDESONIDE 0.5 MG/2 ML NEB RESP TX SCH ×2 (07:00→19:05)
[2017-08-16] MEDS: MONTELUKAST 10 MG TABLET PO SCH (11:07)
[2017-08-16] MEDS: PANTOPRAZOLE 40 MG TABLET PO SCH (11:07)
[2017-08-16] MEDS: FLUCONAZOLE 100 MG TABLET PO SCH (11:07)
[2017-08-16] MEDS: LEVOFLOXACIN 500 MG TABLET PO SCH (11:07)
[2017-08-16] MEDS: CALCIUM (CARBONATE) 500 MG TABLET PO SCH (11:07)
[2017-08-16] MEDS: TRIAMCINOLONE 0.1% CREAM 15 GM TUBE TOP SCH ×3 (11:07→21:14)
[2017-08-16] MEDS ORDERED: ONDANSETRON 4 MG TABLET PO PRN (11:10)
[2017-08-16] MEDS: LEVALBUTEROL 1.25 MG/3 ML NEB RESP TX SCH ×2 (14:33→19:05)
[2017-08-16] MEDS: ACETAMINOPHEN 325 MG TABLET PO PRN ×2 (15:35→23:40)
[2017-08-17] MEDS: LEVALBUTEROL 1.25 MG/3 ML NEB RESP TX SCH ×6 (00:05→19:15)
[2017-08-17] MEDS: BUDESONIDE 0.5 MG/2 ML NEB RESP TX SCH ×2 (07:05→19:15)
[2017-08-17] MEDS: LEVOFLOXACIN 500 MG TABLET PO SCH (08:34)
[2017-08-17] MEDS: PANTOPRAZOLE 40 MG TABLET PO SCH (08:34)
[2017-08-17] MEDS: CALCIUM (CARBONATE) 500 MG TABLET PO SCH (08:35)
[2017-08-17] MEDS: MONTELUKAST 10 MG TABLET PO SCH (08:35)
[2017-08-17] MEDS: FLUCONAZOLE 100 MG TABLET PO SCH (08:35)
[2017-08-17] MEDS: TRIAMCINOLONE 0.1% CREAM 15 GM TUBE TOP SCH ×3 (08:36→22:23)
[2017-08-17] MEDS: ACETAMINOPHEN 325 MG TABLET PO PRN (15:18)
[2017-08-18] MEDS: LEVALBUTEROL 1.25 MG/3 ML NEB RESP TX SCH ×7 (00:03→23:35)
[2017-08-18] MEDS: BUDESONIDE 0.5 MG/2 ML NEB RESP TX SCH ×2 (06:58→19:14)
[2017-08-18] MEDS: LEVOFLOXACIN 500 MG TABLET PO SCH (08:28)
[2017-08-18] MEDS: TRIAMCINOLONE 0.1% CREAM 15 GM TUBE TOP SCH ×3 (08:28→22:25)
[2017-08-18] MEDS: CALCIUM (CARBONATE) 500 MG TABLET PO SCH (08:28)
[2017-08-18] MEDS: MONTELUKAST 10 MG TABLET PO SCH (08:28)
[2017-08-18] MEDS: FLUCONAZOLE 100 MG TABLET PO SCH (08:28)
[2017-08-18] MEDS: PANTOPRAZOLE 40 MG TABLET PO SCH (08:29)
[2017-08-18] MEDS: ACETAMINOPHEN 325 MG TABLET PO PRN ×2 (12:45→19:30)
[2017-08-19] MEDS: LEVALBUTEROL 1.25 MG/3 ML NEB RESP TX SCH ×4 (03:21→14:30)
[2017-08-19 05:51] LABS: Basophils % 0.1 % (0.0-0.8); Eosinophils # 0.2 10*3/uL (0.0-0.87); Eosinophils % 0.6 % (0.00-10.9); Hematocrit 22.9 VOL% (42.0-52.0); Hemoglobin 7.5 GM/DL (14.0-18.0); Immature Granulocytes % 0.2 %; Immature Granulocytes Absolute 0.07 #; Lymphocytes # 25.9 10*3/uL (1.4-4.0); Lymphocytes % 90.6 % (21.2-54.2); Mean Corpuscular HGB Conc 32.8 GM/DL (32-36); Mean Corpuscular Hemoglobin 34 PG (27-34); Mean Corpuscular Volume 104.1 FL (87-102); Mean Platelet Volume 13.5 FL (9.6-12.0); Monocytes # 0.9 10*3/uL (0.11-0.8); Monocytes % 3.2 % (1.7-12.7); Neutrophils # 1.5 10*3/uL (1.4-7.4); Neutrophils % 5.3 % (38.7-73.9); Red Cell Distribution Width 19.8 % (9.3-17.3); White Blood Count 28.6 T/CUMM (4-12)
[2017-08-19 06:08] LABS: Platelet Count 30 T/CUMM (130-400)
[2017-08-19 06:17] LABS: Calcium 8.3 MG/DL (8.5-10.1); Osmolality,Calculated 268.2 MOS/KG (273-304); Potassium 4.4 MMOL/L (3.5-5.1)
[2017-08-19 06:23] LABS: Atypical Lymphocytes Moderate; Hypochromasia 1+; Lymphocytes 81 % (20-55); Macrocytosis 1+; Platelet Estimate Decreased; Segmented Neutrophils 18 % (50-85); Smudge Cells Many; Target Cells Slight; Total Cells Counted 100
[2017-08-19] MEDS ORDERED: SODIUM CHLORIDE 0.9% 1,000 ML IV PRN (08:01)
[2017-08-19] MEDS ORDERED: COLCHICINE 0.6 MG TABLET PO ONE (08:04)
[2017-08-19] MEDS ORDERED: DEXAMETHASONE 10 MG/1 ML VIAL IV ONE (08:04)
[2017-08-19] MEDS: TRIAMCINOLONE 0.1% CREAM 15 GM TUBE TOP SCH ×2 (09:19→16:21)
[2017-08-19] MEDS: MONTELUKAST 10 MG TABLET PO SCH (09:19)
[2017-08-19] MEDS: PANTOPRAZOLE 40 MG TABLET PO SCH (09:19)
[2017-08-19] MEDS: CALCIUM (CARBONATE) 500 MG TABLET PO SCH (09:19)
[2017-08-19] MEDS: FLUCONAZOLE 100 MG TABLET PO SCH (09:19)
[2017-08-19] MEDS: LEVOFLOXACIN 500 MG TABLET PO SCH (09:19)
[2017-08-19] MEDS: BUDESONIDE 0.5 MG/2 ML NEB RESP TX SCH (10:23)
[2017-08-19 16:36] VITALS: BP 110/65
== END 2017-08-19 18:00 | disposition home or self-care (01) | DRG 871 ==
LOC: N.ED 18:48 → SUATTDRO 22:55 → SUPCPDRO 22:55 → N.EDINP 22:55 → N.ICU 23:39 → N.4E 08-13 15:32
PROVIDERS: ADMIT Internal Medicine; ATTEND Internal Medicine

== ENCOUNTER 2017-11-07 03:16 | Inpatient (IN) ==
[2017-11-07] MEDS ORDERED: methylPREDNISolone SOD SUC 125 MG/2 ML VIAL IV STA (03:37)
[2017-11-07] MEDS ORDERED: ALBUTEROL/IPRATROPIUM 3 ML NEB RESP TX STA (03:37)
[2017-11-07] MEDS ORDERED: SODIUM CHLORIDE 0.9% 500 ML IV STA (03:37)
[2017-11-07 03:52] LABS: Allen Test Positive
[2017-11-07 03:54] LABS: ABG Base Excess 8.5 MMOL/L (-2.5-2.5); ABG HCO3 32.3 MMOL/L (20-26); ABG PCO2 45.4 MM HG (35-48); ABG PH 7.472 (7.35-7.45); ABG PO2 87.5 MM HG (80-95); ABG TCO2 30.2 MMOL/L (23-27)
[2017-11-07 04:01] LABS: Basophils % 0.1 % (0.0-0.8); Hematocrit 33.1 VOL% (42.0-52.0); Hemoglobin 10.7 GM/DL (14.0-18.0); Immature Granulocytes % 0.3 %; Immature Granulocytes Absolute 0.17 #; Lymphocytes # 53.4 10*3/uL (1.4-4.0); Lymphocytes % 95.3 % (21.2-54.2); Mean Corpuscular HGB Conc 32.3 GM/DL (32-36); Mean Corpuscular Hemoglobin 36 PG (27-34); Mean Corpuscular Volume 110.7 FL (87-102); Monocytes # 1.7 10*3/uL (0.11-0.8); NRBC # 0.03 10*3/uL; Neutrophils # 0.8 10*3/uL (1.4-7.4); Neutrophils % 1.3 % (38.7-73.9); Platelet Count 48 T/CUMM (130-400); Red Blood Count 2.99 MC/CUMM (3.8-5.5); Red Cell Distribution Width 18.9 % (9.3-17.3)
[2017-11-07 04:15] LABS: PT Patient Result 10.7 SECS
[2017-11-07 04:24] LABS: Ammonia 26 UMOL/L (11-32)
[2017-11-07 04:29] LABS: Alanine Aminotransferase 13 U/L (16-61); Albumin 3.6 G/DL (3.4-5.0); Alkaline Phosphatase 99 U/L (45-117); Aspartate Amino Transferase 24 U/L (0-37); Blood Urea Nitrogen 20 MG/DL (7-18); Calcium 8.6 MG/DL (8.5-10.1); Glucose 130 MG/DL (74-106); Osmolality,Calculated 268.5 MOS/KG (273-304); Potassium 3.4 MMOL/L (3.5-5.1); Sodium 132 MMOL/L (136-145); Total Protein 6.6 G/DL (6.4-8.3); Troponin I Only < 0.015 NG/ML (0.00-0.045)
[2017-11-07 04:56] LABS: Lymphocytes 97 % (20-55); Segmented Neutrophils 1 % (50-85); Total Cells Counted 100
[2017-11-07 04:58] LABS: Atypical Lymphocytes Few; Hypochromasia 1+; Ovalocytes Slight; Platelet Estimate Decreased; Smudge Cells Moderate
[2017-11-07 05:00] LABS: Macrocytosis Slight
[2017-11-07] MEDS ORDERED: ACETAMINOPHEN 325 MG TABLET ONE (05:59)
[2017-11-07] MEDS ORDERED: ACETAMINOPHEN 325 MG TABLET PO ONE (06:00)
[2017-11-07] MEDS ORDERED: POTASSIUM CHLORIDE 20 MEQ TABLET PO ONE (06:07)
[2017-11-07] MEDS ORDERED: ACETAMINOPHEN 325 MG TABLET PO PRN (06:09)
[2017-11-07] MEDS ORDERED: LEVOFLOXACIN INJ 500 MG in PREMIX 1 EACH IV SCH (06:30)
[2017-11-07] MEDS ORDERED: SODIUM CHLORIDE 0.9% 1,000 ML IV SCH (06:30)
[2017-11-07] MEDS ORDERED: traMADol 50 MG TABLET PO PRN (06:30)
[2017-11-07] MEDS ORDERED: LEVOFLOXACIN INJ 500 MG in PREMIX 1 EACH IV ONE (06:33)
[2017-11-07] MEDS: BUDESONIDE 0.5 MG/2 ML NEB RESP TX SCH ×2 (07:24→19:39)
[2017-11-07] MEDS: ALBUTEROL/IPRATROPIUM 3 ML NEB RESP TX SCH ×5 (07:24→23:25)
[2017-11-07] MEDS ORDERED: SIMVASTATIN 10 MG TABLET PO SCH (09:00)
[2017-11-07] MEDS: BENZONATATE 100 MG CAPSULE PO SCH ×2 (10:15→21:24)
[2017-11-07] MEDS: FLUTICASONE 50 MCG NASAL SPRAY 16 GM BOTTLE BOTH NARES SCH ×2 (10:16→21:28)
[2017-11-07] MEDS: MONTELUKAST 10 MG TABLET PO SCH (10:16)
[2017-11-07] MEDS: PANTOPRAZOLE 20 MG TABLET PO SCH (10:16)
[2017-11-07] MEDS: metOLazone 2.5 MG TABLET PO SCH (10:16)
[2017-11-07] MEDS ORDERED: MAGNESIUM SULF RIDER 2 GM in PREMIX 1 EACH IV PRN (12:34)
[2017-11-07] MEDS ORDERED: MAGNESIUM SULF RIDER 4 GM in PREMIX 1 EACH IV PRN (12:34)
[2017-11-07] MEDS: ONDANSETRON 4 MG TABLET PO SCH ×2 (12:35→18:41)
[2017-11-07] MEDS: AZITHROMYCIN INJ 500 MG in SODIUM CHLORIDE 0.9% 250 ML IV SCH (13:44)
[2017-11-07 14:22] LABS: Apearance,Urine CLEAR (Clear); Bilirubin,Urine Negative (Negative); Blood, Urine Small mg/dL (Negative); Glucose,Urine (UA) Negative (Negative); Ketones,Urine 5 mg/dL (Negative); Nitrite,Urine Negative (Negative); Protein,Urine Negative; RBC,Urine 4 /HPF (0-4); Urine Color Yellow (Yellow); Urine Specific Gravity 1.015 (1.001-1.035); WBC,Urine 1 /HPF (0-6)
[2017-11-07] MEDS ORDERED: FUROSEMIDE 20 MG/2 ML VIAL IV ONE (18:39)
[2017-11-07] MEDS: MIRTAZAPINE 15 MG TABLET PO SCH (21:24)
[2017-11-08] MEDS: ONDANSETRON 4 MG TABLET PO SCH ×5 (01:19→23:51)
[2017-11-08] MEDS: ALBUTEROL/IPRATROPIUM 3 ML NEB RESP TX SCH ×6 (03:42→23:40)
[2017-11-08] MEDS: BUDESONIDE 0.5 MG/2 ML NEB RESP TX SCH ×2 (07:04→19:48)
[2017-11-08 07:17] LABS: Basophils % 0.1 % (0.0-0.8); Eosinophils % 0.1 % (0.00-10.9); Hematocrit 26.9 VOL% (42.0-52.0); Hemoglobin 8.8 GM/DL (14.0-18.0); Immature Granulocytes % 0.5 %; Immature Granulocytes Absolute 0.11 #; Lymphocytes # 21.5 10*3/uL (1.4-4.0); Lymphocytes % 92.5 % (21.2-54.2); Mean Corpuscular HGB Conc 32.7 GM/DL (32-36); Mean Corpuscular Hemoglobin 35 PG (27-34); Mean Platelet Volume 12.7 FL (9.6-12.0); Monocytes # 0.9 10*3/uL (0.11-0.8); Monocytes % 3.7 % (1.7-12.7); Neutrophils # 0.7 10*3/uL (1.4-7.4); Neutrophils % 3.1 % (38.7-73.9); Red Blood Count 2.49 MC/CUMM (3.8-5.5); Red Cell Distribution Width 18.8 % (9.3-17.3)
[2017-11-08 07:27] LABS: Platelet Count 34 T/CUMM (130-400); White Blood Count 23.2 T/CUMM (4-12)
[2017-11-08 07:45] LABS: Calcium 8.5 MG/DL (8.5-10.1); Osmolality,Calculated 270.4 MOS/KG (273-304); Potassium 3.3 MMOL/L (3.5-5.1)
[2017-11-08 07:58] LABS: Atypical Lymphocytes Few; Hypochromasia 1+; Lymphocytes 92 % (20-55); Macrocytosis Slight; Ovalocytes Slight; Platelet Estimate Decreased; Segmented Neutrophils 7 % (50-85); Total Cells Counted 100
[2017-11-08 07:59] LABS: Smudge Cells Moderate
[2017-11-08] MEDS: BENZONATATE 100 MG CAPSULE PO SCH ×2 (09:03→20:22)
[2017-11-08] MEDS: MONTELUKAST 10 MG TABLET PO SCH (09:03)
[2017-11-08] MEDS: metOLazone 2.5 MG TABLET PO SCH (09:04)
[2017-11-08] MEDS: PANTOPRAZOLE 20 MG TABLET PO SCH (09:04)
[2017-11-08] MEDS: FLUTICASONE 50 MCG NASAL SPRAY 16 GM BOTTLE BOTH NARES SCH ×2 (09:09→20:21)
[2017-11-08] MEDS: LEVOFLOXACIN INJ 500 MG in PREMIX 1 EACH IV SCH (09:12)
[2017-11-08] MEDS: POTASSIUM CHLORIDE 20 MEQ TABLET PO SCH (12:20)
[2017-11-08] MEDS: FUROSEMIDE 20 MG/2 ML VIAL IV SCH (12:20)
[2017-11-08] MEDS: AZITHROMYCIN INJ 500 MG in SODIUM CHLORIDE 0.9% 250 ML IV SCH (15:34)
[2017-11-08] MEDS ORDERED: POTASSIUM CHLORIDE 20 MEQ PACK PO ONE (17:19)
[2017-11-08] MEDS: MIRTAZAPINE 15 MG TABLET PO SCH (20:22)
[2017-11-09] MEDS: ALBUTEROL/IPRATROPIUM 3 ML NEB RESP TX SCH ×3 (03:34→11:55)
[2017-11-09] MEDS: ONDANSETRON 4 MG TABLET PO SCH ×2 (05:52→11:32)
[2017-11-09 06:28] LABS: Basophils # 0.1 10*3/uL (0.0-0.2); Basophils % 0.2 % (0.0-0.8); Eosinophils # 0.1 10*3/uL (0.0-0.87); Eosinophils % 0.3 % (0.00-10.9); Hemoglobin 8.6 GM/DL (14.0-18.0); Immature Granulocytes % 0.1 %; Immature Granulocytes Absolute 0.03 #; Lymphocytes # 27.7 10*3/uL (1.4-4.0); Lymphocytes % 91.8 % (21.2-54.2); Mean Corpuscular HGB Conc 33.1 GM/DL (32-36); Mean Corpuscular Hemoglobin 36 PG (27-34); Mean Corpuscular Volume 108.8 FL (87-102); Mean Platelet Volume 13.2 FL (9.6-12.0); Monocytes # 1.5 10*3/uL (0.11-0.8); Monocytes % 5.1 % (1.7-12.7); Neutrophils # 0.8 10*3/uL (1.4-7.4); Neutrophils % 2.5 % (38.7-73.9); Red Blood Count 2.39 MC/CUMM (3.8-5.5); Red Cell Distribution Width 18.6 % (9.3-17.3); White Blood Count 30.2 T/CUMM (4-12)
[2017-11-09 06:47] LABS: Calcium 8.9 MG/DL (8.5-10.1); Potassium 4.1 MMOL/L (3.5-5.1)
[2017-11-09 06:50] LABS: Platelet Count 35 T/CUMM (130-400)
[2017-11-09 07:25] LABS: Atypical Lymphocytes Few; Band Neutrophils 1 % (0-10); Eosinophils 2 % (0-10); Lymphocytes 87 % (20-55); Macrocytosis 1+; Segmented Neutrophils 9 % (50-85); Smudge Cells Moderate; Total Cells Counted 100
[2017-11-09 07:26] LABS: Ovalocytes Slight; Platelet Estimate Decreased; Tear Drop Cells Slight
[2017-11-09] MEDS: BUDESONIDE 0.5 MG/2 ML NEB RESP TX SCH (08:03)
[2017-11-09] MEDS: BENZONATATE 100 MG CAPSULE PO SCH (09:33)
[2017-11-09] MEDS: PANTOPRAZOLE 20 MG TABLET PO SCH (09:34)
[2017-11-09] MEDS: MONTELUKAST 10 MG TABLET PO SCH (09:35)
[2017-11-09] MEDS: metOLazone 2.5 MG TABLET PO SCH (09:35)
[2017-11-09] MEDS: POTASSIUM CHLORIDE 20 MEQ TABLET PO SCH (09:35)
[2017-11-09] MEDS: FLUTICASONE 50 MCG NASAL SPRAY 16 GM BOTTLE BOTH NARES SCH (09:37)
[2017-11-09] MEDS: LEVOFLOXACIN INJ 500 MG in PREMIX 1 EACH IV SCH (09:38)
[2017-11-09] MEDS: FUROSEMIDE 20 MG/2 ML VIAL IV SCH (09:39)
[2017-11-09 11:51] VITALS: BP 109/70
[2017-11-09] MEDS ORDERED: LOPERAMIDE 2 MG CAPSULE PO ONE (13:10)
[2017-11-09] MEDS: AZITHROMYCIN INJ 500 MG in SODIUM CHLORIDE 0.9% 250 ML IV SCH (13:11)
== END 2017-11-09 15:10 | disposition home health service (06) | DRG 194 ==
LOC: N.ED 03:16 → N.4E 04:45 → SUATTDRO 04:45 → N.4E 04:54 → N.EDINP 04:54 → N.4E 06:16
PROVIDERS: ADMIT Internal Medicine; ATTEND Internal Medicine

== ENCOUNTER 2018-01-27 22:59 | Inpatient (IN) ==
[2018-01-27 23:45] LABS: Basophils # 0.1 10*3/uL (0.0-0.2); Basophils % 0.1 % (0.0-0.8); Hematocrit 21.7 VOL% (42.0-52.0); Immature Granulocytes Absolute 0.02 #; Lymphocytes # 121.9 10*3/uL (1.4-4.0); Lymphocytes % 94.1 % (21.2-54.2); Mean Corpuscular HGB Conc 29.5 GM/DL (32-36); Mean Corpuscular Hemoglobin 33 PG (27-34); Mean Corpuscular Volume 111.3 FL (87-102); Monocytes # 6.8 10*3/uL (0.11-0.8); Monocytes % 5.2 % (1.7-12.7); NRBC # 0.02 10*3/uL; Neutrophils # 0.7 10*3/uL (1.4-7.4); Neutrophils % 0.6 % (38.7-73.9); Red Blood Count 1.95 MC/CUMM (3.8-5.5)
[2018-01-27 23:48] LABS: Hemoglobin 6.4 GM/DL (14.0-18.0); White Blood Count 129.5 T/CUMM (4-12)
[2018-01-27 23:49] LABS: Platelet Count 12 T/CUMM (130-400)
[2018-01-27 23:52] LABS: INR 1.1; PT Patient Result 11.8 SECS; Partial Thromboplastin Time 25.7 SECS (0-40)
[2018-01-28 00:02] LABS: Albumin 2.6 G/DL (3.4-5.0); Bilirubin,Total 1.7 MG/DL (0.2-1.0); Calcium 7.7 MG/DL (8.5-10.1); Osmolality,Calculated 277.4 MOS/KG (273-304); Total Protein 5.4 G/DL (6.4-8.3)
[2018-01-28 00:15] LABS: Band Neutrophils 1 % (0-10); Eosinophils 1 % (0-10); Lymphocytes 94 % (20-55); Macrocytosis 2+; Platelet Estimate Decreased; Reactive Lymphocytes Few; Segmented Neutrophils 2 % (50-85); Smudge Cells 2+; Total Cells Counted 100
[2018-01-28 00:16] LABS: Anisocytosis Slight
[2018-01-28 04:07] LABS: Apearance,Urine CLEAR (Clear); Bilirubin,Urine Negative (Negative); Blood, Urine Negative (Negative); Glucose,Urine (UA) Negative (Negative); Ketones,Urine Negative (Negative); Mucus,Urine Occasional /LPF (Occasional); Nitrite,Urine Negative (Negative); Protein,Urine Negative; RBC,Urine <1 /HPF (0-4); Urine Color Yellow (Yellow); Urine Specific Gravity 1.014 (1.001-1.035)
[2018-01-28 07:04] LABS: Uric Acid 8.4 MG/DL (3.5-7.2)
[2018-01-29 04:21] LABS: Hematocrit 28.4 VOL% (42.0-52.0); Hemoglobin 8.7 GM/DL (14.0-18.0); Immature Granulocytes % 0.1 %; Immature Granulocytes Absolute 0.13 #; Lymphocytes # 149.9 10*3/uL (1.4-4.0); Lymphocytes % 97.1 % (21.2-54.2); Mean Corpuscular HGB Conc 30.6 GM/DL (32-36); Mean Corpuscular Hemoglobin 31 PG (27-34); Mean Corpuscular Volume 101.1 FL (87-102); Mean Platelet Volume 12.3 FL (9.6-12.0); Monocytes # 3.2 10*3/uL (0.11-0.8); Monocytes % 2.1 % (1.7-12.7); NRBC # 0.03 10*3/uL; Neutrophils # 1.2 10*3/uL (1.4-7.4); Neutrophils % 0.7 % (38.7-73.9); Red Blood Count 2.81 MC/CUMM (3.8-5.5); Red Cell Distribution Width 24.4 % (9.3-17.3)
[2018-01-29 04:22] LABS: Hematocrit 28.6 VOL% (42.0-52.0); Hemoglobin 8.8 GM/DL (14.0-18.0)
[2018-01-29 04:24] LABS: Calcium 8.1 MG/DL (8.5-10.1); Osmolality,Calculated 282.1 MOS/KG (273-304); Potassium 3.8 MMOL/L (3.5-5.1)
[2018-01-29 04:37] LABS: White Blood Count 154.5 T/CUMM (4-12)
[2018-01-29 04:38] LABS: Platelet Count 28 T/CUMM (130-400)
[2018-01-29 05:26] LABS: Hypochromasia 1+; Lymphocytes 97 % (20-55); Macrocytosis Slight; Ovalocytes Slight; Platelet Estimate Decreased; Segmented Neutrophils 2 % (50-85); Smudge Cells Moderate; Total Cells Counted 100
[2018-01-30 06:41] LABS: Hematocrit 28.3 VOL% (42.0-52.0); Hemoglobin 8.5 GM/DL (14.0-18.0); Immature Granulocytes % 0.4 %; Immature Granulocytes Absolute 0.59 #; Lymphocytes # 158.6 10*3/uL (1.4-4.0); Lymphocytes % 97.8 % (21.2-54.2); Mean Corpuscular Hemoglobin 31 PG (27-34); Mean Corpuscular Volume 103.3 FL (87-102); Mean Platelet Volume 12.2 FL (9.6-12.0); Monocytes # 1.5 10*3/uL (0.11-0.8); Monocytes % 0.9 % (1.7-12.7); NRBC # 0.02 10*3/uL; Neutrophils # 1.4 10*3/uL (1.4-7.4); Neutrophils % 0.9 % (38.7-73.9); Red Blood Count 2.74 MC/CUMM (3.8-5.5); Red Cell Distribution Width 24.9 % (9.3-17.3)
[2018-01-30 06:47] LABS: White Blood Count 162.1 T/CUMM (4-12)
[2018-01-30 06:48] LABS: Platelet Count 20 T/CUMM (130-400)
[2018-01-30 07:09] LABS: Hypochromasia 1+; Lymphocytes 97 % (20-55); Platelet Estimate Decreased; Segmented Neutrophils 1 % (50-85); Smudge Cells Moderate; Total Cells Counted 100
[2018-01-30 07:10] LABS: Macrocytosis Slight
[2018-01-30 07:11] LABS: Albumin 2.4 G/DL (3.4-5.0); Bilirubin,Total 1.6 MG/DL (0.2-1.0); Calcium 8.1 MG/DL (8.5-10.1); Osmolality,Calculated 280.1 MOS/KG (273-304); Potassium 3.7 MMOL/L (3.5-5.1); Total Protein 5.5 G/DL (6.4-8.3)
[2018-01-31 05:26] LABS: Hematocrit 29.7 VOL% (42.0-52.0); Hemoglobin 8.5 GM/DL (14.0-18.0); Immature Granulocytes % 0.1 %; Immature Granulocytes Absolute 0.21 #; Lymphocytes # 205.3 10*3/uL (1.4-4.0); Lymphocytes % 97.9 % (21.2-54.2); Mean Corpuscular HGB Conc 28.6 GM/DL (32-36); Mean Corpuscular Hemoglobin 30 PG (27-34); Mean Corpuscular Volume 105.7 FL (87-102); NRBC # 0.06 10*3/uL; Red Blood Count 2.81 MC/CUMM (3.8-5.5); Red Cell Distribution Width 25.9 % (9.3-17.3)
[2018-01-31 05:28] LABS: Platelet Count 22 T/CUMM (130-400); White Blood Count 209.6 T/CUMM (4-12)
[2018-01-31 05:55] LABS: Calcium 7.9 MG/DL (8.5-10.1)
[2018-01-31 06:50] LABS: Lymphocytes 97 % (20-55); Platelet Estimate Decreased; Segmented Neutrophils 1 % (50-85); Total Cells Counted 100
[2018-01-31 06:51] LABS: Anisocytosis 2+; Macrocytosis 2+; Smudge Cells Moderate
[2018-02-01 15:07] VITALS: BP 113/66
== END 2018-02-01 09:40 | disposition hospice, home (50) | DRG 840 ==
LOC: N.EDINP 22:59 → N.ED 22:59 → SUATTDRO 01-28 01:47 → N.5E 01-28 02:12 → N.4E 01-28 03:26
PROVIDERS: ADMIT Internal Medicine Cardiovascular Disease; ATTEND Internal Medicine